=== PATIENT | male | born 1960 | race Caucasian/White ===

== ENCOUNTER 2020-03-28 20:10 | Emergency (ER) | payer OTHER, SELFPAY ==
[2020-03-28 20:12] VITALS: BP 141/83; PULSE 75; RESP 16; TEMP 36.7; O2SAT 99; BMI 25.0
[2020-03-28 20:15] VITALS: BP 141/83; PULSE 75; RESP 16; TEMP 36.7; O2SAT 99; BMI 25.0
--- NOTE | 2020-03-28 20:40 | HMH.EDUTC ---
[facility] [place] Disposition Clinical Impression: Dog bite of left thumb Qualifiers: Encounter type: initial encounter Qualified Code(s): S61.052A - Open bite of left thumb without damage to nail, initial encounter Laceration of left thumb Qualifiers: Encounter type: initial encounter Damage to nail status: without damage Foreign body presence: without foreign body Qualified Code(s): S61.012A - Laceration without foreign body of left thumb without damage to nail, initial encounter Disposition: Home, Self-Care Condition on Discharge: Good Instructions: How to Care for a Laceration After Repair, DI for Dog Bite Additional Instructions: Keep the wound clean and dry. Keep a dressing on it if you are going to be getting it dirty. Watch the for signs of infection, such as redness, swelling, drainage, fever. etc. Take tylenol or ibuprofen for pain. Follow up with your regular doctor. Return in 7 to 10 days to have the sutures removed. GO TO THE ER FOR ANY WORSENING SYMPTOMS OR CONCERNS. Prescriptions: Amoxicillin/Potassium Clav [Augmentin 875-125 Tablet] 1 tab PO Q12H 10 Days #20 tab Transmission Status: Received by [id number] Mupirocin [Bactroban 2% Ointment 22gm tube] 1 applicatio TP TID 7 Days #1 tube Transmission Status: Received by [id number] Referrals: PCP,No [Primary Care Provider] - Time of Disposition: 20:57 Medical Decision Making - Medical Records Medical records reviewed: No: I reviewed the patient's medical records. - Mariano Inquiry Pt receiving controlled substance: No Vital Signs: 03/28/20 20:12 03/28/20 20:15 03/28/20 20:47 Temperature 98.1 F 98.1 F 98.1 F Temperature Source Oral Oral Pulse Rate 75 Pulse Rate [Right Radial] 75 75 Respiratory Rate 16 16 16 Blood Pressure 141/83 H Blood Pressure [Right Arm] 141/83 H 141/83 H Blood Pressure Mean [Right Arm] 102 102 Blood Pressure Source [Right Arm] Automatic Cuff Automatic Cuff Blood Pressure Position [Right Arm] Supine Sitting 02 Sat by Pulse Oximetry 99 99 Oxygen Delivery Method Room Air Room Air [facility] [place] HPI - General Stated complaint: AO 0204@1930 laceration to left thumb, passed out Time Seen by Provider: 03/28/20 20:40 Mode of Arrival: Ambulatory Source of Information: Patient Limitations: No Limitations Description of Symptoms (Recalled from Triage Doc. by RN): PATIENT C/O DOG BITE TO LEFT HAND. DOG IS UP TO DATE ON VACCINES. PATIENT IS UP TO DATE ON TDAP HEENT Symptoms (Recalled from RN notes): No Resp Symptoms (Recalled from RN notes): No Skin Symptoms (Recalled from RN notes): Yes MS Symptoms (Recalled from RN notes): No Functional Status (Recalled from RN notes): WNL - History of Present Illness Provider Complaint: He states that his 2 dogs got in a fight in his living room after his kids were playing rought with dogs. He pulled the dogs apart and one of them accidentily bit him on the left thumb. He states that his tetanus immunization is up to date. He states that his dog's rabies immunization is up to date also. - Related Data Home Medications Medication Instructions Recorded Confirmed atenolol 50 mg tablet 50 mg PO DAILY 12/04/18 12/04/18 Previous Rx's Medication Instructions Recorded albuterol sulfate 90 mcg/actuation 1 puff INHALATION Q6H PRN 7 Days 12/04/18 aerosol inhaler #6.7 g azithromycin 250 mg tablet 250 mg PO QDAY 5 Days #6 tab 12/04/18 benzonatate 200 mg capsule 200 mg PO TID PRN 7 Days #21 cap 12/04/18 prednisone 20 mg tablet 20 mg PO BID 5 Days #10 tab 12/04/18 Amoxicillin/Potassium Clav 1 tab PO Q12H 10 Days #20 tab 03/28/20 [Augmentin 875-125 Tablet] Mupirocin [Bactroban 2% Ointment 1 applicatio TP TID 7 Days #1 tube 03/28/20 22gm tube] Allergies Allergy/AdvReac Type Severity Reaction Status Date / Time No Known Allergies Allergy Verified 12/04/18 16:36 - Worker's Comp Is this a Worker's Comp case?: No [facility] History - Hepati
[2020-03-28 20:47] VITALS: BP 141/83; PULSE 75; RESP 16; TEMP 36.7; O2SAT 99
== END 2020-03-28 21:06 | disposition home or self-care (01) ==
LOC: ER 20:22 → UTC 20:23
PROVIDERS: Emergency Provider Nurse Practitioner Family
DX: S61.052A Open bite of left thumb without damage to nail, initial encounter (principal); W54.0XXA Bitten by dog, initial encounter; F17.210 Nicotine dependence, cigarettes, uncomplicated; I47.1 Supraventricular tachycardia
CPT/HCPCS: 12001; 99202; G0463

== ENCOUNTER → 2021-03-03 13:27 | Outpatient (CLI) | payer OTHER, SELFPAY | PROVIDERS: PCP Internal Medicine; Visit Provider Nurse Practitioner Family | DX: Z02.4 Encounter for examination for driving license (principal) ==